=== PATIENT | male | born 1960 | race Caucasian/White ===

== ENCOUNTER 2019-05-30 00:15 | Emergency (ER) | payer MEDICAID ==
[~2019-05-30] VITALS: Ht 182.9 cm; Wt 86.0 kg
[~2019-05-30 00:15] MED LIST: CLIN-90 PO; CLIN150C8 PO; CLIN300C11 PO; HYDR-4383 PO; IBUP-1986 PO; LEVA15HF4 IH; ONDA4TAB12 PO
[2019-05-30] MEDS ORDERED: SULF1TAB49 PO (01:10)
[2019-05-30] MEDS ORDERED: sulfamethoxazole/trimethoprim DS (800/160mg) tablet PO ONE (01:10)
[2019-05-30 02:01] VITALS: BP 156/98
== END 2019-05-30 01:55 | disposition home or self-care (01) ==
LOC: ER 00:16
DX: L03.012 Cellulitis of left finger (principal); L02.512 Cutaneous abscess of left hand; J44.9 Chronic obstructive pulmonary disease, unspecified; F41.9 Anxiety disorder, unspecified; Z59.0 Homelessness; Z88.8 Allergy status to other drugs, medicaments and biological substances; Z79.899 Other long term (current) drug therapy
CPT/HCPCS: 10060; 26010; 99283

== ENCOUNTER 2019-09-05 11:56 | Emergency (ER) | payer MEDICAID ==
[~2019-09-05] VITALS: Ht 180.3 cm; Wt 79.0 kg
[~2019-09-05 11:56] MED LIST changes: -CLIN-90 PO; +CLIN-97 PO
[2019-09-05 12:01] VITALS: BP 139/95
[2019-09-05] MEDS ORDERED: TETanus/Pertussis (Acell)/Diphther VAC/PF (Tdap-Adult) 0.5ml syringe IMVAC ONE (12:45)
[2019-09-05] MEDS ORDERED: bacitracin 15gm ointment TP ONE (12:45)
--- NOTE | 2019-09-05 12:55 | NUR ---
pt lac site cleaned with sterile water dermabond applied with steristrips ,ointment bactrium applied pt tetanus inj given,pt denies nay concern will give d/c instructionto the pt.
== END 2019-09-05 13:08 | disposition home or self-care (01) ==
LOC: ER 11:56
DX: S60.512A Abrasion of left hand, initial encounter (principal); J44.9 Chronic obstructive pulmonary disease, unspecified; F41.9 Anxiety disorder, unspecified; J45.909 Unspecified asthma, uncomplicated; Z59.0 Homelessness; Z88.8 Allergy status to other drugs, medicaments and biological substances; Z79.899 Other long term (current) drug therapy; V09.9XXA Pedestrian injured in unspecified transport accident, initial encounter; Y93.89 Activity, other specified; Y92.89 Other specified places as the place of occurrence of the external cause; Y99.8 Other external cause status
CPT/HCPCS: 90471; 90715; 99283

== ENCOUNTER 2022-03-21 22:26 | Inpatient (IN) | payer MEDICAID ==
[~2022-03-21] VITALS: Ht 177.8 cm; Wt 75.0 kg
[~2022-03-21 22:26] MED LIST changes: +CLIN-197 PO; -CLIN300C11 PO
[2022-03-22 00:34] LABS: BASOPHILS # (AUTO) 0.1 X10'3 (0-0.2); BASOPHILS % (AUTO) 0.7 % (0-1); EOSINOPHILS # (AUTO) 0.4 X10'3 (0-0.9); EOSINOPHILS % (AUTO) 2.4 % (0-6); HEMATOCRIT 38.6 % (42.0-52.0); HEMOGLOBIN 13.1 g/dl (14.0-17.9); LYMPHOCYTES # (AUTO) 4.3 X10'3 (1.1-4.8); LYMPHOCYTES % (AUTO) 29.1 % (21-51); MEAN CORPUSCULAR HGB CONC 33.8 g/dL (33.0-36.5); MEAN CORPUSCULAR VOLUME 91.6 FL (78-98); MONOCYTES # (AUTO) 1.5 X10'3 (0-0.9); MONOCYTES % (AUTO) 10.2 % (2-12); NEUTROPHILS # (AUTO) 8.5 X10'3 (1.8-7.7); NEUTROPHILS % (AUTO) 57.6 % (42-75); PLATELET COUNT 320 X10'3 (140-440); RED BLOOD COUNT 4.22 X10'6 (4.70-6.10); RED CELL DISTRIBUTION WIDTH 14.3 % (11.5-14.5); WHITE BLOOD COUNT 14.7 X10'3 (4.5-11.0)
[2022-03-22 00:46] LABS: ALANINE AMINOTRANSFERASE 73 U/L (12-78); ALBUMIN 3.3 G/DL (3.4-5.0); ALBUMIN/GLOBULIN RATIO 0.6 (1.1-1.5); ALKALINE PHOSPHATASE 119 IU/L (46-116); ANION GAP 12 (8-16); ASPARTATE AMINO TRANSFERASE 82 U/L (10-37); BILIRUBIN,TOTAL 0.7 MG/DL (0.1-1.0); BLOOD UREA NITROGEN 49 MG/DL (7-18); BUN/CREATININE RATIO 19.1 (5.4-32.0); CALCIUM 9.5 MG/DL (8.5-10.1); CHLORIDE 105 MMOL/L (99-107); CREATININE 2.57 MG/DL (0.60-1.10); GLUCOSE 99 MG/DL (70-104); MAGNESIUM 2.2 MG/DL (1.5-2.4); SODIUM 140 MMOL/L (135-145); TOTAL CARBON DIOXIDE 22.7 MMOL/L (24-32); eGFR 26 ML/MIN
[2022-03-22 00:47] LABS: ETHANOL < 0.010 GM/DL (0.0-0.010)
[2022-03-22 02:03] LABS: CLARITY,URINE CLEAR (Clear); COLOR,URINE YELLOW (Yellow); GLUCOSE, URINE NEGATIVE (Neg); KETONES,URINE TRACE mg/dl (Neg); LEUKOCYTE ESTERASE ,URINE SMALL (Neg); NITRITES, URINE NEGATIVE (Neg); OCCULT BLOOD,URINE TRACE-INTACT (Neg); PROTEIN,URINE TRACE mg/dl (Neg); UROBILINOGEN,URINE 0.2 E.U/dL (0.2-1.0)
[2022-03-22 02:05] LABS: UA COLLECTION TYPE NON-SPECIFIED
[2022-03-22 02:09] LABS: SQUAMOUS EPITHELIAL CELL,UR FEW /LPF (FEW)
[2022-03-22 02:10] LABS: WBC,URINE TNTC /HPF (0-4)
[2022-03-22 02:11] LABS: SPERM FEW /HPF (NEGATIVE)
[2022-03-22 02:12] LABS: BACTERIA,URINE 1+ /HPF (Neg)
[2022-03-22 02:22] LABS: URINE AMPHETAMINE SCREEN NEGATIVE (Neg); URINE BARBITUATE SCREEN NEGATIVE (Neg); URINE BENZODIAZEPINES SCREEN NEGATIVE (Neg); URINE CANNABINOID SCREEN NEGATIVE (Neg); URINE COCAINE SCREEN NEGATIVE (Neg); URINE METHADONE SCREEN NEGATIVE (Neg); URINE OPIATE SCREEN NEGATIVE (Neg); URINE PHENCYCLIDINE SCREEN NEGATIVE (Neg)
[2022-03-22] MEDS ORDERED: normal saline 1000ML IV soln IV ONE (02:25)
[2022-03-22] MEDS ORDERED: CefTRIAXone 2gm/D5W 50ml BAG 50 ML IV ONE (02:25)
[2022-03-22] MEDS ORDERED: ondansetron/PF 4mg/2ml inj IV PRN (02:40)
[2022-03-22] MEDS ORDERED: HYDROcodone/acetaminophen 10/325mg tab PO PRN (02:40)
[2022-03-22] MEDS ORDERED: HYDROcodone/acetaminophen 5mg/325mg tablet PO PRN (02:40)
[2022-03-22] MEDS ORDERED: acetaminophen 650mg rectal suppository RC PRN (02:40)
[2022-03-22] MEDS ORDERED: diphenhydrAMINE 50 mg/ml inj IV PRN (02:40)
[2022-03-22] MEDS ORDERED: mag hydrox/Alum hydrox/simeth 30ml oral suspension PO PRN (02:40)
[2022-03-22] MEDS ORDERED: bisacodyl 10mg suppository rectal RC PRN (02:40)
[2022-03-22] MEDS ORDERED: acetaminophen 325mg tablet PO PRN (02:40)
[2022-03-22] MEDS ORDERED: ondansetron 4mg rapidly disintigrating tab PO PRN (02:40)
[2022-03-22] MEDS ORDERED: diphenhydrAMINE 25mg capsule PO PRN (02:40)
[2022-03-22] MEDS ORDERED: magnesium hydroxide 30ml (MOM) UD suspension PO PRN (02:40)
[2022-03-22] MEDS ORDERED: morphine 2 MG/ML inj. syringe IV PRN (02:40)
[2022-03-22] MEDS: normal saline 1000ml 1,000 ML IV SCH ×2 (03:15→14:22)
[2022-03-22 03:26] LABS: APTT 23 SECONDS (22-32)
[2022-03-22 03:48] LABS: CREATINE KINASE 864 U/L (39-308); PHOSPHORUS 4.5 MG/DL (2.3-4.5)
[2022-03-22 03:57] LABS: LIPASE 91 U/L (73-393)
[2022-03-22] MEDS ORDERED: CefTRIAXone/D5W-Rocephin 1gm 50 ML IV SCH (08:00)
[2022-03-22] MEDS: docusate sod 100mg capsule PO SCH ×2 (08:00→20:31)
--- NOTE | 2022-03-22 08:13 | NUR ---
PT SLEEPING, TECH PLACED BREAKFAST TRAY ON BEDSIDE TABLE
[2022-03-22] MEDS: heparin, porcine 5000 units/ml vial SQ SCH ×2 (08:56→20:33)
[2022-03-22] MEDS: pantoprazole 40mg Tablet.DR PO SCH (09:01)
[2022-03-22] MEDS: acetaminophen 325mg tablet PO PRN (12:01)
--- NOTE | 2022-03-22 15:15 | NUR ---
Pt resting comfortable. VS WNL. Pt had x1 urine incontinent episode. RN performed incontinence care. RN educated pt on the importance of Q2H turning. Pt was agreeable to turning to side/off of coccyx. Pt elevated heels. Additionally, pt reported chronic/moderate lower back pain. RN administered 650 mg tylenol (see eMAR). Upon reassessment, pt resting/coping. RN offered repositioning.
[2022-03-22 17:45] VITALS: BP 114/71
--- NOTE | 2022-03-22 18:00 | NUR ---
Patient in room [facility]TH[facility] 4014. I have received report from GRACE Ervin and had the opportunity to ask questions and assume patient care.
--- NOTE | 2022-03-22 18:07 | NUR ---
Patient arrived on the floor at 1745. Vitals signs stable temp 98.0, BP 114/71, HR 93 SpO2 97, RR 14, Pain 6.Patient has an IV on right forearm infusing as ordered. Will report to machinist 2nd shift nurse.
--- NOTE | 2022-03-22 18:39 | NUR ---
Problems reprioritized. Patient report given, questions answered & plan of care reviewed with GRACE Pedersen.
[2022-03-22] MEDS ORDERED: IBUP-860 PO (19:53)
[2022-03-22] MEDS ORDERED: ALBU8.5H17 INH (19:53)
[2022-03-22] MEDS ORDERED: temazepam 15mg capsule PO PRN (21:00)
[2022-03-22 22:00] VITALS: BP 110/70
[2022-03-23] MEDS: acetaminophen 325mg tablet PO PRN ×2 (03:49→10:50)
--- NOTE | 2022-03-23 04:30 | NUR ---
Student documentation: I have reviewed and agree with all interventions, assessments performed and documented by Mickey Danielle .
--- NOTE | 2022-03-23 04:31 | NUR ---
Student Medication Administration: For this medication-pass time frame, all medication were reviewed, dispensed, administered and documented per hospital policy by Mickey Danielle.
[2022-03-23 06:00] VITALS: BP 106/95
--- NOTE | 2022-03-23 06:10 | NUR ---
Problems reprioritized. Patient report given, questions answered & plan of care reviewed with GRACE Love.
[2022-03-23 06:18] LABS: BASOPHILS # (AUTO) 0.1 X10'3 (0-0.2); BASOPHILS % (AUTO) 0.7 % (0-1); EOSINOPHILS # (AUTO) 0.6 X10'3 (0-0.9); EOSINOPHILS % (AUTO) 7.2 % (0-6); HEMATOCRIT 31.8 % (42.0-52.0); HEMOGLOBIN 10.7 g/dl (14.0-17.9); LYMPHOCYTES # (AUTO) 2.3 X10'3 (1.1-4.8); LYMPHOCYTES % (AUTO) 26.5 % (21-51); MEAN CORPUSCULAR HEMOGLOBIN 31.2 PG (27.0-31.0); MEAN CORPUSCULAR HGB CONC 33.6 g/dL (33.0-36.5); MEAN CORPUSCULAR VOLUME 92.9 FL (78-98); MEAN PLATELET VOLUME 8.8 FL (7.4-10.4); MONOCYTES # (AUTO) 0.9 X10'3 (0-0.9); MONOCYTES % (AUTO) 10.5 % (2-12); NEUTROPHILS # (AUTO) 4.8 X10'3 (1.8-7.7); NEUTROPHILS % (AUTO) 55.1 % (42-75); PLATELET COUNT 215 X10'3 (140-440); RED BLOOD COUNT 3.42 X10'6 (4.70-6.10); RED CELL DISTRIBUTION WIDTH 14.4 % (11.5-14.5); WHITE BLOOD COUNT 8.7 X10'3 (4.5-11.0)
[2022-03-23 06:40] LABS: ALANINE AMINOTRANSFERASE 49 U/L (12-78); ALBUMIN 2.3 G/DL (3.4-5.0); ALBUMIN/GLOBULIN RATIO 0.5 (1.1-1.5); ANION GAP 10 (8-16); ASPARTATE AMINO TRANSFERASE 54 U/L (10-37); BILIRUBIN,TOTAL 0.5 MG/DL (0.1-1.0); BLOOD UREA NITROGEN 25 MG/DL (7-18); BUN/CREATININE RATIO 18.8 (5.4-32.0); CALCIUM 8.1 MG/DL (8.5-10.1); CHLORIDE 114 MMOL/L (99-107); CREATININE 1.33 MG/DL (0.60-1.10); GLUCOSE 100 MG/DL (70-104); POTASSIUM 3.5 MMOL/L (3.5-5.1); SODIUM 145 MMOL/L (135-145); TOTAL CARBON DIOXIDE 21.2 MMOL/L (24-32); TOTAL PROTEIN 6.6 G/DL (6.4-8.2); eGFR 55 ML/MIN
[2022-03-23 06:53] LABS: ALKALINE PHOSPHATASE 86 IU/L (46-116)
[2022-03-23] MEDS: CefTRIAXone/D5W-Rocephin 1gm 50 ML IV SCH (08:46)
[2022-03-23] MEDS: docusate sod 100mg capsule PO SCH ×2 (08:46→19:54)
[2022-03-23] MEDS: pantoprazole 40mg Tablet.DR PO SCH (08:46)
[2022-03-23] MEDS: heparin, porcine 5000 units/ml vial SQ SCH ×2 (08:47→19:54)
[2022-03-23 10:00] VITALS: BP 101/63
--- NOTE | 2022-03-23 15:42 | NUR ---
PAGER ID: [phone] MESSAGE: Kate Oenill [phone] Re: Erica [id number] Patient would like to know if he can have motrin for pain Addendum: 03/23/22 at 1550 by Kate Soria RN received orders for Motrin 600mg PO q6h prn
[2022-03-23] MEDS: ibuprofen 200mg tablet PO PRN (16:24)
[2022-03-23 18:00] VITALS: BP 106/95
--- NOTE | 2022-03-23 18:50 | NUR ---
Problems reprioritized. Patient report given, questions answered & plan of care reviewed with Mitch EDWARDS.
[2022-03-23 22:00] VITALS: BP 125/77
[2022-03-24] MEDS: ibuprofen 200mg tablet PO PRN (05:08)
[2022-03-24 05:58] LABS: EOSINOPHILS % (AUTO) 7.8 % (0-6); HEMOGLOBIN 11.2 g/dl (14.0-17.9)
[2022-03-24 06:00] VITALS: BP 135/87
[2022-03-24 06:01] LABS: BASOPHILS % (AUTO) 0.6 % (0-1); EOSINOPHILS # (AUTO) 0.5 X10'3 (0-0.9); HEMATOCRIT 33.3 % (42.0-52.0); LYMPHOCYTES # (AUTO) 2.3 X10'3 (1.1-4.8); LYMPHOCYTES % (AUTO) 34.3 % (21-51); MEAN CORPUSCULAR HEMOGLOBIN 31.1 PG (27.0-31.0); MEAN CORPUSCULAR HGB CONC 33.6 g/dL (33.0-36.5); MEAN CORPUSCULAR VOLUME 92.5 FL (78-98); MEAN PLATELET VOLUME 8.3 FL (7.4-10.4); MONOCYTES # (AUTO) 0.8 X10'3 (0-0.9); MONOCYTES % (AUTO) 11.9 % (2-12); NEUTROPHILS # (AUTO) 3.1 X10'3 (1.8-7.7); NEUTROPHILS % (AUTO) 45.4 % (42-75); PLATELET COUNT 232 X10'3 (140-440); RED CELL DISTRIBUTION WIDTH 14.4 % (11.5-14.5); WHITE BLOOD COUNT 6.9 X10'3 (4.5-11.0)
--- NOTE | 2022-03-24 06:07 | NUR ---
Problems reprioritized. Patient report given, questions answered & plan of care reviewed with GRACE LYNN.
[2022-03-24 06:11] LABS: ALANINE AMINOTRANSFERASE 44 U/L (12-78); ALBUMIN 2.2 G/DL (3.4-5.0); ALBUMIN/GLOBULIN RATIO 0.5 (1.1-1.5); ALKALINE PHOSPHATASE 83 IU/L (46-116); ANION GAP 12 (8-16); ASPARTATE AMINO TRANSFERASE 44 U/L (10-37); BILIRUBIN,TOTAL 0.2 MG/DL (0.1-1.0); BLOOD UREA NITROGEN 18 MG/DL (7-18); BUN/CREATININE RATIO 15.5 (5.4-32.0); CALCIUM 8.4 MG/DL (8.5-10.1); CHLORIDE 111 MMOL/L (99-107); CREATININE 1.16 MG/DL (0.60-1.10); GLUCOSE 94 MG/DL (70-104); POTASSIUM 3.6 MMOL/L (3.5-5.1); SODIUM 146 MMOL/L (135-145); TOTAL CARBON DIOXIDE 23.1 MMOL/L (24-32); TOTAL PROTEIN 6.8 G/DL (6.4-8.2); eGFR 64 ML/MIN
--- NOTE | 2022-03-24 06:40 | NUR ---
Patient in room [facility]THO 4014. I have received report from Lazara EDWARDS and had the opportunity to ask questions and assume patient care.
[2022-03-24] MEDS: CefTRIAXone/D5W-Rocephin 1gm 50 ML IV SCH (07:20)
[2022-03-24] MEDS: heparin, porcine 5000 units/ml vial SQ SCH (07:20)
[2022-03-24] MEDS: docusate sod 100mg capsule PO SCH (07:20)
[2022-03-24] MEDS: pantoprazole 40mg Tablet.DR PO SCH (07:20)
--- NOTE | 2022-03-24 07:31 | NUR ---
PAGER ID: [phone] MESSAGE: Kate Oneill [phone] Re: Erica [id number] patients iv out please call re: iv ABX OR CHANGE TO PO ? Addendum: 03/24/22 at 0806 by Kate Soria RN OK TO LEAVE IV OUT AWARE PATIENT HAS GRAM NEG RODS IN UA WILL ADJUST ABX
[2022-03-24] MEDS ORDERED: AMOX-580 PO ×2 (10:24)
--- NOTE | 2022-03-24 14:24 | NUR ---
PAGER ID: [phone] MESSAGE: Kate Oneill [phone] Re: Erica Rosario2V please call re: conversation with Soc Svc ? DC or not?
--- NOTE | 2022-03-24 16:21 | NUR ---
Called in RX to [facility] per Ludwin the pharmacist RX should be ready in 30 min patient can go through drive through
--- NOTE | 2022-03-24 17:48 | NUR ---
Patients discharge reviewed with patient. Patient verbalized understanding. Patient had no IV in place. Patient was given sack lunch x2. xrtra clothing sent with patient. depends, urinal , dryflow. Patient was given a cab paid for by hospital and taken to the [facility] to [facility] picker medication and then [facility] Patient taken to cab via his wheelchair by FAM Thorne.
[2022-03-25] MEDS ORDERED: DOXY-243 PO (18:04)
== END 2022-03-24 16:20 | disposition home or self-care (01) | DRG 720 ==
LOC: ER 22:26 → ED HOLD 03-22 02:47 → EDBEDREQ 03-22 04:56 → ORTHO 4S 03-22 17:27
PROVIDERS: ADMIT Family Medicine; ATTEND Internal Medicine
DX: A41.9 Sepsis, unspecified organism (principal); E43 Unspecified severe protein-calorie malnutrition; N17.9 Acute kidney failure, unspecified; E87.20 Acidosis, unspecified; E86.0 Dehydration; N39.0 Urinary tract infection, site not specified; G89.4 Chronic pain syndrome; B95.2 Enterococcus as the cause of diseases classified elsewhere; J44.9 Chronic obstructive pulmonary disease, unspecified; F41.9 Anxiety disorder, unspecified; R82.4 Acetonuria; R94.31 Abnormal electrocardiogram [ECG] [EKG]; R32 Unspecified urinary incontinence; Z59.00 Homelessness unspecified; Z87.891 Personal history of nicotine dependence; Z99.3 Dependence on wheelchair; Z68.23 Body mass index [BMI] 23.0-23.9, adult; Z88.8 Allergy status to other drugs, medicaments and biological substances; Z79.899 Other long term (current) drug therapy
CPT/HCPCS: 36415; 71045; 80053; 80305; 80320; 81001; 82550; 83605; 83690; 83735; 83880; 84100; 84145; 84443; 84484; 85025; 85610; 85730; 87040; 87077; 87081; 87088; 87186; 93005; 97161; 97530; 97535; 99285; A4349; C1758; G0378; J0696; J1644; J7030

== ENCOUNTER 2022-03-24 18:28 | Emergency (ER) | payer MEDICAID ==
[~2022-03-24] VITALS: Ht 177.8 cm; Wt 72.0 kg
[~2022-03-24 18:28] MED LIST changes: +ALBU8.5H17 INH; +AMOX-580 PO; -CLIN-197 PO; -CLIN-97 PO; -CLIN150C8 PO; -HYDR-4383 PO; -IBUP-1986 PO; +IBUP-860 PO; -LEVA15HF4 IH; -ONDA4TAB12 PO
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
[2022-03-25 09:10] VITALS: BP 138/93
[2022-03-25] MEDS ORDERED: DOXY-243 PO (18:04)
== END 2022-03-25 10:15 | disposition home or self-care (01) ==
LOC: ER 18:29
DX: Z00.00 Encounter for general adult medical examination without abnormal findings (principal); J44.9 Chronic obstructive pulmonary disease, unspecified; Z88.8 Allergy status to other drugs, medicaments and biological substances; Z59.00 Homelessness unspecified
CPT/HCPCS: 99284

== ENCOUNTER 2024-12-28 12:49 | Outpatient (CLI) | payer MEDICAID ==
[~2024-12-28 12:49] MED LIST changes: -AMOX-580 PO
--- NOTE | 2024-12-28 18:50 | RADIOLOGY REPORT ---
EXAM: CT CT LOWER EXTREMITY INDICATION: NON HEALING ULCER OF RIGHT LE TECHNIQUE: Axial images of right lower extremity have been obtained along with coronal and sagittal r eformatted images. All CT scans at this facility use dose modulation, iterative reconstruction, and/o r weight based dosing when appropriate to reduce radiation dose to as low as reasonably achievable. COMPARISON: None FINDINGS: BONES: No CT evidence of an acute fracture or aggressive osseous lesion. Prior medial malleolar corti eugenia lag screws. Marginal osteophytosis. Laterally applied plate and screw construct with evidence o f loosening. Osseous lucency along the distal aspect of the distal screws of the distal fibula. Diffu sely decreased bone mineral density. Achilles insertional enthesophyte. MUSCLES: No abnormal attenuation. JOINT SPACES: No joint effusion. TENDONS/LIGAMENTS: No large area of tenosynovitis. Sequelae of prior avulsive injury of the distal a nterior inferior tibiofibular ligament and likely prior injury to the region of the deltoid ligament. OTHER: None. IMPRESSION: 1. Loosening of the distal fibular plate and screw construct. 2. Sequelae of prior avulsive injury of the distal anterior inferior tibiofibular ligament and likely prior injury to the region of the deltoid ligament. 3. No CT evidence of definitive osteomyelitis allowing for limitation. If continued clinical concern, recommend further evaluation with MRI with metallic artifact reduction protocol.
== END 2024-12-28 23:59 | disposition home or self-care (01) ==
LOC: RAD 12:49
PROVIDERS: ATTEND Family Medicine
DX: T84.032A Mechanical loosening of internal right knee prosthetic joint, initial encounter (principal); L97.911 Non-pressure chronic ulcer of unspecified part of right lower leg limited to breakdown of skin; X58.XXXA Exposure to other specified factors, initial encounter; Y93.89 Activity, other specified; Y92.89 Other specified places as the place of occurrence of the external cause; Y99.8 Other external cause status
CPT/HCPCS: 73700